=== PATIENT | female | born 1990 | race Caucasian/White ===

== ENCOUNTER 2018-01-09 07:33 | Inpatient (IN) | payer OTHER ==
[2018-01-09] VITALS (39 sets, daily range): BP systolic 103–167; BP diastolic 53–78; PULSE 68–93; TEMP 97.4–98.6
[~2018-01-09] VITALS: Ht 165.1 cm; Wt 84.1 kg
[~2018-01-09 07:33] MED LIST: CONCEPT DHA1 CAP PO; NATURAL IRON65 MG
[2018-01-09 08:56] LABS: BASO % 0.4 % (0.0-2.0); EOS # 0.1 (0.0-0.7); EOS % 1.3 % (0-4.0); GRAN # 7.3 (1.4-6.5); GRAN % 65.1 % (42.2-75.2); HEMATOCRIT 34.8 % (37.0-47.0); HEMOGLOBIN 11.6 g/dl (12.5-16.0); LYMPH # 2.8 (1.2-3.4); LYMPH % 25.1 % (20.0-51.0); MEAN CELL VOLUME 77 fl (80.0-100.0); MEAN CORPUSCULAR HEMOGLOBIN 26 pg (27.0-31.0); MEAN CORPUSCULAR HGB CONC 33 g/dl (33.0-37.0); MEAN PLATELET VOLUME 10.8 fl (7.4-10.4); MONO # 0.8 (0.1-0.6); MONO % 6.7 % (1.7-9.3); PLATELET COUNT 284 K/mm3 (130-400); RED BLOOD COUNT 4.52 M/mm3 (4.10-5.30); REDCELL DISTRIBUTION WIDTH-CV 15.4 % (11.5-14.5)
[2018-01-10 04:45] VITALS: BP 108/50; PULSE 65; TEMP 98.3
[2018-01-10 10:00] VITALS: BP 109/56; PULSE 68; TEMP 97.9
[2018-01-10 16:45] VITALS: BP 107/57; PULSE 70; TEMP 98.2
[2018-01-10 19:17] VITALS: BP 108/69; PULSE 66; TEMP 98.9
[2018-01-11 07:20] VITALS: BP 109/64; PULSE 73; TEMP 98.9
== END 2018-01-11 11:00 | disposition home or self-care (01) | DRG 775 ==
LOC: LDR 07:33 → OB 07:33 → LDR 09:23 → OB 17:25 → LDR 01-12 14:51
PROVIDERS: Obstetrics & Gynecology
PROC: 10E0XZZ Delivery of Products of Conception, External Approach (ICD-10-PCS; principal; 2018-01-09)
PROC: 3E033VJ Introduction of Other Hormone into Peripheral Vein, Percutaneous Approach (ICD-10-PCS; 2018-01-09)
PROC: 10907ZC Drainage of Amniotic Fluid, Therapeutic from Products of Conception, Via Natural or Artificial Opening (ICD-10-PCS; 2018-01-09)
DX: O99.02 Anemia complicating childbirth (principal); Z3A.40 40 weeks gestation of pregnancy; Z37.0 Single live birth; Z22.330 Carrier of Group B streptococcus
CPT/HCPCS: J2540; J2590; J2795; J7120